=== PATIENT | male | born 1995 | race African-American/Black ===

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

== ENCOUNTER 2017-01-20 13:40 | Emergency (ER) | payer SELFPAY ==
[2017-01-20 13:57] LABS: BASOPHILS 0.1 %; BASOPHILS ABSOLUTE 0.01 10/3/uL (0.0-0.16); EOSINOPHILS 0.5 %; EOSINOPHILS ABSOLUTE 0.04 10/3/uL (0.0-0.53); ER CBC TAT 0 Hrs 05 Mins; HEMATOCRIT 46.2 % (40.0-51.0); HEMOGLOBIN 15.9 g/dL (13.6-17.8); MEAN CORPUS HGB CONC 34.4 g/dL (32.0-36.0); MEAN CORPUSCULAR HEMOGLOB 30.3 pg (26.0-34.0); MEAN CORPUSCULAR VOLUME 88.2 fL (80-100); MEAN PLATELET VOLUME 10.7 fL (9.2-13.0); MONOCYTES 11.1 %; MONOCYTES ABSOLUTE 0.89 10/3/uL (0.21-1.20); NEUTROPHILS 73.3 %; NEUTROPHILS ABSOLUTE 5.88 10/3/uL (2.02-8.40); PLATELET COUNT 123 10/3/uL (150-400); RBC DISTRIBUTION WIDTH 12.5 % (12.0-16.0); RED CELL COUNT 5.24 10/6/uL (4.7-6.1)
[2017-01-20 13:59] LABS: MANUAL DIFF NO %
[2017-01-20 14:10] LABS: ASCORBIC ACID (UR NOT ORDER) NEG (NEG); BILIRUBIN, URINE NEGATIVE (NEG); ER URINALYSIS TAT 0 Hrs 18 Mins; KETONE, URINE NEGATIVE (NEG); LEUKOCYTE ESTERASE(NOT OR NEG (NEG); NITRITE (URINE) NEG (NEG); WBC (NOT ORDERED) (RFLEX) 1 (0-5)
[2017-01-20 14:12] LABS: A/G RATIO 1.1 (0.7-1.9); ALBUMIN 4.1 G/DL (3.5-5.0); ALKALINE PHOSPHATASE 59 U/L (43-122); BUN (BLOOD UREA NITROGEN) 12 MG/DL (5-25); CHLORIDE, SERUM 105 MMOL/L (96-112); CO2 (CARBON DIOXIDE) 28 MMOL/L (23-31); CREATININE 1.08 MG/DL (0.70-1.30); GFR AFRICAN AMERICAN 115 ML/MIN (>=60); GFR NON AFRICAN AMERICAN 99 ML/MIN (>=60); GLOBULIN 3.7 G/DL (2.5-4.1); GLUCOSE, SERUM 109 MG/DL (60-99); POTASSIUM, SERUM 3.5 MMOL/L (3.5-5.2); SGOT(AST) 15 U/L (8-40); SGPT(ALT) 12 U/L (5-65); SODIUM, SERUM 137 MMOL/L (135-145); TOTAL BILIRUBIN 0.5 MG/DL (0-1.2); TOTAL PROTEIN 7.8 G/DL (6.0-8.5)
[2017-01-20 14:13] LABS: CALCIUM, SERUM 9.1 MG/DL (8.5-10.4)
== END 2017-01-20 16:12 | disposition home or self-care (01) ==
LOC: ER 13:40
PROVIDERS: Emergency Medicine
DX: R10.31 Right lower quadrant pain (principal)
CPT/HCPCS: 74177; 80053; 81001; 83690; 85025; 96374; 99284; J2405; Q9967

== ENCOUNTER 2017-01-21 05:52 | Emergency (ER) | payer SELFPAY ==
--- NOTE | ~2017-01-21 | HP ---
History And Physical [facility] [id number] [place]. [address] NAME: ANGELICA BRADEN IV : 97 STATUS : REG ER PAT#: [id number] AGE: 21 ADM/REG DATE : 01/21/17 MR#: [id number] REPORT SERV DATE: 01/21/17 DICTATED BY: ANGELICA CHILDS III DATE: 01/21/17 REPORT STATUS : Draft TRANSCRIBED BY: MODL DATE: 01/21/17 DATE OF ADMISSION: 01/21/2017 HISTORY OF PRESENT ILLNESS: The patient is a 21-year-old young man with a complaint of right lower quadrant abdominal pain, which had prompted his being evaluated in the emergency room on two consecutive days. He had two CT scans, the first one yesterday showed no real appendiceal visualization and the second showed an appendix that was suspicious for early appendicitis. The patient is a very thin young man, therefore the CT scan and did not have the typical stranding and fat planes seen with more obese patients. The patient's pain has been in the right lower quadrant and constant, been present for four to five days. He has had fairly good localization. He had some nausea without vomiting. It seems the pain is worse with palpation and it is not relieved by much of anything other than medications and the symptoms have been worsening. CT done today was with contrast that helped delineate the appendix better. SOCIAL HISTORY: The patient smokes "weed" daily and drinks alcohol frequently. Denies tobacco use. 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 PAST MEDICAL HISTORY: Some hypertension in the past. REVIEW OF SYSTEMS: Pretty much negative except for some situational depression due to recent break-up with a girlfriend. He has had some diarrhea but his weight has been stable. He had a very thin weight, but says he eats a lot of junk foods, mostly chips and things like that. He does not really eat much in the way of "square meals." PHYSICAL EXAMINATION: GENERAL: He is a thin Afro-Spanish male in with uncomfortable state, but not in distress. HEENT: Unremarkable. His mucous membranes were moist. RESPIRATIONS: Clear with good inspiratory effort. HEART: Regular rate and rhythm without thrill, bruit, or murmur. GI: Evaluation showed he was tender to percussion in the right lower quadrant with positive McBurney point tenderness, guarding, and very mild rebound. MUSCULOSKELETAL: Unremarkable, thin male. GENITALIA: Unremarkable. SKIN: Without rash. NEUROLOGIC: Alert and oriented x3 and situationally aware. DATA: CT scan showed early appendicitis. White count not really elevated much at 8900 that was only 8000 yesterday so it has been trending upward. Platelet count was somewhat low at 148, which is hard to explain. Liver function tests were normal. IMPRESSION: He has acute appendicitis and appendectomy has been recommended to the patient. History And Physical [address] [place]. [address] NAME: ANGELICA BRADEN JOSE CRUZ : 97 STATUS : REG ER PAT#: [id number] AGE: 21 ADM/REG DATE : 01/21/17 MR#: [id number] REPORT SERV DATE: 01/21/17 DICTATED BY: ANGELICA CHILDS III DATE: 01/21/17 REPORT STATUS : Draft TRANSCRIBED BY: SAMUEL DATE: 01/21/17 Risk of surgery described to the patient including the risk of infection, bleeding, conversion to open surgery from laparoscopy, and leakage from the appendiceal stump, bowel obstruction from adhesions, and hernias from the incisions as well as anesthetic risk. The patient accepts risks for potential benefit. ADDIE/SAMUEL Angelica Childs III, M.D. / [id number]
--- NOTE | ~2017-01-21 | OP ---
Record Of Operation [facility] [address] [place]. [address] NAME: ANGELICA BRADEN IV : 97 STATUS : REG ER PAT#: [id number] AGE: 21 ADM/REG DATE : 01/21/17 MR#: [id number] REPORT SERV DATE: 01/21/17 DICTATED BY: ANGELICA CHILDS III DATE: 01/21/17 REPORT STATUS : Draft TRANSCRIBED BY: MODL DATE: 01/21/17 DATE OF PROCEDURE: 01/21/2017 Acute appendicitis with a positive CT scan with contrast compared to a CT scan done the day before without contrast that did not show the appendix at all. PREOPERATIVE DIAGNOSIS: Early appendicitis. POSTOPERATIVE DIAGNOSIS: Early appendicitis with a fecalith at the base with a very injected serosa of the appendix, which was somewhat enlarged and mildly inflamed. PROCEDURE: Laparoscopic-assisted open appendectomy followed by a block of bilateral costal margins using 30 mL of 0.5% Marcaine with epinephrine. SSN/SSBN [employer]MENT OPERATOR: Rachael Childs RN, [facility]. SPECIMEN REMOVED: Appendix, which was catarrhal. ESTIMATED BLOOD LOSS: 5 mL. COMPLICATIONS: None. ANESTHESIA: General with endotracheal tube supplemented with the costal margin block for postop pain alleviation. DESCRIPTION OF PROCEDURE: The patient was brought to the operating suite, placed on the operating table, and prepped and draped in routine fashion. A time-out was called. All personnels involved were in agreement with the procedure with allergies and perioperative antibiotics, Ancef and Flagyl. The patient was then approached through an infraumbilical incision through a somewhat distorted umbilical skin contour, but a curvilinear infraumbilical incision was made and open trocar technique was used to place a 12 mm balloon port in the peritoneal cavity. The abdomen was insufflated to 15 mmHg pressure with carbon dioxide gas and the operating right-angle telescope placed into the peritoneal cavity. Internal exam was performed. The liver appeared normal as was the gallbladder. Small bowel was somewhat gaseously filled and a small ileus was present and the large bowel appeared unremarkable. The stomach and liver as previously stated were unremarkable. Using the operating scope, the peritoneal attachments to the cecum were taken down with primarily blunt dissection mobilizing the cecum. An atraumatic grasping forceps was then used to grasp the tip of the appendix and bring it up through the infraumbilical incision where it could be approached by open technique. The mesoappendix was controlled with free- hand ties of 3-0 Vicryl. The base of the appendix was tied off with a double tie of 0 Vicryl and the appendiceal stump circled with a 3-0 silk pursestring suture. The appendix was then divided between hemostats and the base of the appendix cauterized and inverted into the cecum with 3-0 silk pursestring suture. After this was done, the cecum was allowed to drop back in the peritoneal cavity. Record Of Operation [facility] [address] [place]. [address] NAME: ANGELICA BRADEN IV : 97 STATUS : REG ER PAT#: [id number] AGE: 21 ADM/REG DATE : 01/21/17 MR#: [id number] REPORT SERV DATE: 01/21/17 DICTATED BY: ANGELICA CHILDS III DATE: 01/21/17 REPORT STATUS : Draft TRANSCRIBED BY: MODL DATE: 01/21/17 After this was completed, the scope was reintroduced in the abdominal cavity, re- insufflated, and good position of the pursestring and cecal tissues with a normal terminal ileum. Position was noted. The terminal ileum was also normal in appearance. The scope was then removed and the abdomen was closed in layers closing the perineum with a running suture of 0 Vicryl and the fascial tissues were closed with a running suture of 0 Vicryl as well. Subcutaneous tissues were irrigated and closed with interrupted 3-0 Vicryl and the skin closed with Dermabond. Estimated blood loss was 5 mL. The patient tolerated the procedure well. ADDIE/SAMUEL Angelica Childs III, M.D. / [id number] CC: [place]
[2017-01-21 05:11] LABS: BASOPHILS 0.2 %; BASOPHILS ABSOLUTE 0.02 10/3/uL (0.0-0.16); EOSINOPHILS 1.4 %; EOSINOPHILS ABSOLUTE 0.12 10/3/uL (0.0-0.53); HEMATOCRIT 46.7 % (40.0-51.0); HEMOGLOBIN 15.9 g/dL (13.6-17.8); IMMATURE GRANULOCYTES 0.2 %; IMMATURE GRANULOCYTES ABSOLUTE 0.02 10/3/uL (0.0-0.11); LYMPHOCYTES 12.6 %; LYMPHOCYTES ABSOLUTE 1.12 10/3/uL (0.67-4.30); MEAN CORPUSCULAR HEMOGLOB 30.5 pg (26.0-34.0); MEAN CORPUSCULAR VOLUME 89.6 fL (80-100); MEAN PLATELET VOLUME 10.4 fL (9.2-13.0); MONOCYTES 11.3 %; NEUTROPHILS 74.3 %; NEUTROPHILS ABSOLUTE 6.58 10/3/uL (2.02-8.40); PLATELET COUNT 148 10/3/uL (150-400); RBC DISTRIBUTION WIDTH 12.2 % (12.0-16.0); RED CELL COUNT 5.21 10/6/uL (4.7-6.1); WHITE BLOOD CELLS 8.9 10/3/uL (4.5-10.5)
[2017-01-21 05:13] LABS: ER CBC TAT 0 Hrs 06 MinsNP; MANUAL DIFF NO %
[2017-01-21 05:26] LABS: A/G RATIO 1.1 (0.7-1.9); ALKALINE PHOSPHATASE 63 U/L (43-122); BUN (BLOOD UREA NITROGEN) 12 MG/DL (5-25); CALCIUM, SERUM 8.8 MG/DL (8.5-10.4); CHLORIDE, SERUM 104 MMOL/L (96-112); CO2 (CARBON DIOXIDE) 28 MMOL/L (23-31); CREATININE 0.96 MG/DL (0.70-1.30); GFR AFRICAN AMERICAN 132 ML/MIN (>=60); GFR NON AFRICAN AMERICAN 114 ML/MIN (>=60); GLOBULIN 3.5 G/DL (2.5-4.1); GLUCOSE, SERUM 114 MG/DL (60-99); POTASSIUM, SERUM 4.2 MMOL/L (3.5-5.2); SGOT(AST) 15 U/L (8-40); SGPT(ALT) 13 U/L (5-65); SODIUM, SERUM 137 MMOL/L (135-145); TOTAL BILIRUBIN 0.3 MG/DL (0-1.2); TOTAL PROTEIN 7.5 G/DL (6.0-8.5)
== END 2017-01-21 08:13 | disposition admitted as inpatient to this hospital (09) ==
LOC: ER 05:52
PROVIDERS: Specialist; Surgery
PROC: 0DTJ0ZZ Resection of Appendix, Open Approach (ICD-10-PCS; principal; 2017-01-21 08:45)
DX: K37 Unspecified appendicitis (principal)
CPT/HCPCS: 74177; 80053; 85025; 88304; 96374; 99285; A9270-GY; J0330; J0690; J1885; J2250; J2405; J2710; J3010; Q9967